=== PATIENT | male | born 2000 | race Caucasian/White ===

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

== ENCOUNTER 2023-11-01 18:16 | Emergency (ER) | payer BC ==
[2023-11-01] MEDS: Azithromycin 250 MG Tab PO ONE (18:41)
== END 2023-11-01 18:46 | disposition home or self-care (01) ==
LOC: VM.ED 18:16
DX: J20.9 Acute bronchitis, unspecified (principal); Z88.0 Allergy status to penicillin; Z88.2 Allergy status to sulfonamides
CPT/HCPCS: 99284; A9270